=== PATIENT | female | born 2000 | race Two or more races ===

== ENCOUNTER 2021-11-19 17:07 | Emergency (ER) | payer MEDICAID ==
[~2021-11-19] VITALS: Ht 175.3 cm; Wt 164.4 kg
[2021-11-19] MEDS ORDERED: ketorolac trometh. 30mg/ml inj. IM ONE (18:30)
[2021-11-19] MEDS ORDERED: ondansetron 4mg rapidly disintigrating tab PO ONE (18:30)
[2021-11-19 18:41] LABS: URINE HCG NEGATIVE (NEG)
[2021-11-19 18:45] LABS: CLARITY,URINE CLOUDY (Clear); COLOR,URINE YELLOW (Yellow); GLUCOSE, URINE NEGATIVE (Neg); KETONES,URINE NEGATIVE (Neg); LEUKOCYTE ESTERASE ,URINE SMALL (Neg); NITRITES, URINE NEGATIVE (Neg); OCCULT BLOOD,URINE SMALL (Neg); PROTEIN,URINE 100 mg/dl (Neg); UROBILINOGEN,URINE 0.2 E.U/dL (0.2-1.0)
[2021-11-19 18:46] LABS: UA COLLECTION TYPE CLN CATCH MIDSTREAM
[2021-11-19 18:54] LABS: BACTERIA,URINE 1+ /HPF (Neg); MUCUS STRANDS NONE SEEN /LPF (Neg); SQUAMOUS EPITHELIAL CELL,UR FEW /LPF (FEW); WBC,URINE TNTC /HPF (0-4)
[2021-11-19] MEDS ORDERED: CEPH-585 PO (19:20)
[2021-11-19] MEDS ORDERED: ONDA4TAB12 PO (19:20)
[2021-11-19] MEDS ORDERED: cephalexin 250mg capsule PO ONE (19:20)
[2021-11-19 19:31] LABS: HEMOGLOBIN 12.6 g/dl (12.0-16.0); MEAN PLATELET VOLUME 8.5 FL (7.4-10.4)
[2021-11-19 19:33] LABS: BASOPHILS % (AUTO) 0.4 % (0-1); EOSINOPHILS # (AUTO) 0.1 X10'3 (0-0.9); EOSINOPHILS % (AUTO) 0.6 % (0-6); HEMATOCRIT 40.1 % (35.0-45.0); LYMPHOCYTES # (AUTO) 1.6 X10'3 (1.1-4.8); LYMPHOCYTES % (AUTO) 12.8 % (21-51); MEAN CORPUSCULAR HEMOGLOBIN 23.8 PG (27.0-31.0); MEAN CORPUSCULAR HGB CONC 31.5 g/dL (33.0-36.5); MEAN CORPUSCULAR VOLUME 75.5 FL (78-98); MONOCYTES # (AUTO) 0.7 X10'3 (0-0.9); MONOCYTES % (AUTO) 5.4 % (2-12); NEUTROPHILS # (AUTO) 9.8 X10'3 (1.8-7.7); NEUTROPHILS % (AUTO) 80.8 % (42-75); PLATELET COUNT 297 X10'3 (140-440); RED BLOOD COUNT 5.31 X10'6 (4.20-5.60); RED CELL DISTRIBUTION WIDTH 16.9 % (11.5-14.5); WHITE BLOOD COUNT 12.2 X10'3 (4.5-11.0)
[2021-11-19 19:45] LABS: ALANINE AMINOTRANSFERASE 18 U/L (12-78); ALBUMIN 3.3 G/DL (3.4-5.0); ALBUMIN/GLOBULIN RATIO 0.8 (1.1-1.5); ALKALINE PHOSPHATASE 87 IU/L (46-116); ANION GAP 12 (8-16); ASPARTATE AMINO TRANSFERASE 14 U/L (10-37); BILIRUBIN,TOTAL 0.3 MG/DL (0.1-1.0); BLOOD UREA NITROGEN 8 MG/DL (7-18); BUN/CREATININE RATIO 10.4 (6.6-38.0); CALCIUM 8.8 MG/DL (8.5-10.1); CHLORIDE 104 MMOL/L (99-107); CREATININE 0.77 MG/DL (0.40-0.90); GLUCOSE 83 MG/DL (70-104); SODIUM 141 MMOL/L (135-145); TOTAL CARBON DIOXIDE 24.6 MMOL/L (24-32); TOTAL PROTEIN 7.6 G/DL (6.4-8.2); eGFR > 90 ML/MIN
[2021-11-19 20:17] LABS: PLATELET ESTIMATE NORMAL; TOTAL CELLS COUNTED 100
[2021-11-19 20:18] LABS: ANISOCYTOSIS 1+; HYPOCHROMASIA 1+; MICROCYTOSIS 1+
[2021-11-19 20:33] VITALS: BP 127/82
== END 2021-11-19 20:34 | disposition home or self-care (01) ==
LOC: ER 17:08
DX: N39.0 Urinary tract infection, site not specified (principal); R10.13 Epigastric pain; R11.10 Vomiting, unspecified; Z79.2 Long term (current) use of antibiotics
CPT/HCPCS: 36415; 80053; 81001; 81025; 85007; 85025; 96372; 99283; J1885

== ENCOUNTER 2021-12-07 19:07 | Emergency (ER) | payer MEDICAID ==
[~2021-12-07] VITALS: Ht 175.3 cm; Wt 145.4 kg
[~2021-12-07 19:07] MED LIST: CEPH-585 PO; ONDA4TAB12 PO
[2021-12-07 20:06] LABS: URINE HCG NEGATIVE (NEG)
[2021-12-07 20:07] LABS: CLARITY,URINE SLIGHTLY CLOUDY (Clear); GLUCOSE, URINE 100 mg/dl (Neg); KETONES,URINE TRACE mg/dl (Neg); LEUKOCYTE ESTERASE ,URINE NEGATIVE (Neg); NITRITES, URINE POSITIVE (Neg); OCCULT BLOOD,URINE LARGE (Neg); PH,URINE 6.5 (4.8-8.0); PROTEIN,URINE >=300 mg/dl (Neg)
[2021-12-07 20:14] LABS: COLOR,URINE DARK YELLOW (Yellow); UA COLLECTION TYPE CLN CATCH MIDSTREAM
[2021-12-07 20:19] LABS: BACTERIA,URINE 1+ /HPF (Neg); MUCUS STRANDS FEW /LPF (Neg); RBC,URINE TNTC /HPF (0-2); SQUAMOUS EPITHELIAL CELL,UR FEW /LPF (FEW); TRANSITIONAL EPI CELLS,URINE FEW /HPF
[2021-12-07 20:35] VITALS: BP 120/84
[2021-12-07] MEDS ORDERED: sulfamethoxazole/trimethoprim DS (800/160mg) tablet PO ONE (20:45)
[2021-12-07] MEDS ORDERED: SULF1TAB49 PO (20:50)
== END 2021-12-07 21:08 | disposition home or self-care (01) ==
LOC: ER 19:08
DX: N39.0 Urinary tract infection, site not specified (principal); R30.0 Dysuria; R10.2 Pelvic and perineal pain; Z87.440 Personal history of urinary (tract) infections; Z79.2 Long term (current) use of antibiotics
CPT/HCPCS: 81001; 81025; 87088; 99283

== ENCOUNTER 2023-02-01 15:21 | Emergency (ER) | payer MEDICAID ==
[~2023-02-01] VITALS: Ht 180.3 cm; Wt 165.0 kg
[~2023-02-01 15:21] MED LIST changes: -CEPH-585 PO
[2023-02-01 15:24] VITALS: BP 140/80
[2023-02-01] MEDS ORDERED: VALA10002 PO (15:51)
== END 2023-02-01 16:02 | disposition home or self-care (01) ==
LOC: ER 15:22
DX: B00.9 Herpesviral infection, unspecified (principal); L01.09 Other impetigo
CPT/HCPCS: 99283